=== PATIENT | male | born 1960 | race Caucasian/White ===

== ENCOUNTER 2016-08-19 09:22 | Emergency (ER) | payer OTHER ==
[2016-08-19] MEDS ORDERED: HYDROmorphONE/DILAUDID 1 MG/ML SYR IVP ONE (09:28)
[2016-08-19] MEDS ORDERED: IBUPROFEN 200 MG TAB PO ONE (09:28)
--- NOTE | 2016-08-19 09:31 | EDPHY ---
H & P Time Seen by Provider: 08/19/16 09:23 HPI/ROS: CHIEF COMPLAINT: Head injury HISTORY OF PRESENT ILLNESS: Patient is a 56-year-old man who is brought in by EMS after slip and fall. He slipped on ice and hit the back of his head on the ground. He has a 3 cm laceration to his occiput. He did lose consciousness. Witnesses state that he was perseverating initially but no longer was by the time paramedics arrived. His vital signs for them were stable and his glucose is 135. He has mild C1 -C2 area pain as well as a mild headache. He does not take blood thinners or any other medications. He has a history of asthma but nothing else. Denies any recent drug or alcohol ingestion. REVIEW OF SYSTEMS: Constitutional: denies: chills, fever, recent illness, recent injury EENTM: denies: blurred vision, double vision, nose congestion Respiratory: denies: cough, shortness of breath Cardiac: denies: chest pain, irregular heart rate, lightheadedness, palpitations Gastrointestinal/Abdominal: denies: abdominal pain, diarrhea, nausea, vomiting, blood streaked stools Genitourinary: denies: dysuria, frequency, hematuria, pain Musculoskeletal: See HPI denies: joint pain, muscle pain Skin: denies: lesions, rash, jaundice, bruising Neurological: See HPI denies:numbness, paresthesia, tingling, dizziness, weakness Hematologic/Lymphatic: denies: blood clots, easy bleeding, easy bruising Immunologic/allergic: denies: HIV/AIDS, transplant EXAM: GENERAL: Well-appearing, well-nourished and in no acute distress. answers questions appropriately. Not perseverating HEAD: 3 cm laceration to occiput, no visible galea involvement. Not gaping. No crepitus or deformity. EYES: Pupils equal round and reactive to light, extraocular movements intact, sclera anicteric, conjunctiva are normal. ENT: No hemotympanum,TMs normal, nares patent, oropharynx clear without exudates. Moist mucous membranes. NECK: Mild pain at C1-C2 area. No tenderness. No pain with slight range of motion. supple without lymphadenopathy or JVD. LUNGS: Breath sounds clear to auscultation bilaterally and equal. No wheezes rales or rhonchi. HEART: Regular rate and rhythm without murmurs, rubs or gallops. ABDOMEN: Soft, nontender, normoactive bowel sounds. No guarding, no rebound. No masses appreciated. BACK: No CVA tenderness, no spinal tenderness, step-offs or deformities EXTREMITIES: Normal range of motion, no pitting or edema. No clubbing or cyanosis. NEUROLOGICAL: Cranial nerves II through XII grossly intact. Normal speech, normal gait. 5/5 strength, normal movement in all extremities, normal sensation PSYCH: Normal mood, normal affect. SKIN: Warm, dry, normal turgor, no visible rashes or lesions. Source: Patient, EMS Exam Limitations: No limitations - Medical/Surgical History Hx Asthma: No Hx Chronic Respiratory Disease: No Hx Diabetes: No Hx Cardiac Disease: No Hx Renal Disease: No Hx Cirrhosis: No Hx Alcoholism: No - Family History Significant Family History: No pertinent family hx - Social History Smoking Status: Never smoked Alcohol Use: Sober Drug Use: None Constitutional: Initial Vital Signs Temperature (C) 36.8 C 08/19/16 09:31 Heart Rate 97 08/19/16 09:31 Respiratory Rate 18 08/19/16 09:31 Blood Pressure 156/106 H 08/19/16 09:31 O2 Sat (%) 92 08/19/16 09:31 O2 Delivery Mode Room Air Allergies/Adverse Reactions: No Known Allergies Allergy (Unverified 08/19/16 09:30) Home Medications: Medication Instructions Recorded NK [No Known Home Meds] 08/19/16 Medical Decision Making - Diagnostics Imaging: Results: CT scan of the head and cervical spine was obtained. The results of the study are negative for fractures or intracranial injuries. The study was read by Dr. Henson. I viewed the images myself on the PACS system. Procedures: Procedure: Laceration repair. Verbal consent was obtained from the patient. The 3 cm scalp laceration was anesthetized with 1% lidocaine with epi and bicarbonate locally infiltrated. The wound was irrigated copiously according to protocol, draped and explored to its base. It was approximately 1/2 cm deep. There were no deep structures involved. No tendon, nerve, or vascular injury was identified when explored. No foreign body was identified. The wound was repaired with 5 stef. The wound repair was simple. The procedure was performed by myself. A dressing was then placed with sterile gauze and bacitracin. ED Course/Re-evaluation: Cervical collar poorly fitting and cleared by me on arrival. The patient does have very slight neck pain and we discussed benefits of self splinting which has been shown more effective than poorly fitting cervical collars. We will obtain CT scan head and neck treat for pain. We discussed CT results. The patient is relieved. He is not currently in any pain and has no complaints. 12:10 p.m. patient tolerated laceration repair. He declines further workup or testing is eager to go home. Differential Diagnosis: Partial list of the Differential diagnosis considered include but were not limited to; laceration, concussion and although unlikely based on the history and physical exam, I also considered intracranial injury, neck injury. I discussed these differential diagnoses and the plan with the patient as well as the usual and expected course. The patient understands that the diagnosis is provisional and that in medicine we are not always correct and that further workup is often warranted. Usual and customary warnings were given. All of the patient's questions were answered. The patient was instructed to return to the emergency department should the symptoms at all worsen or return, otherwise to followup with the physician as we discussed. - Data Points Medications Given: Discontinued Medications Diphtheria/Tetanus/Acell Pertussis (Boostrix) 0.5 ml IM .ONCE ONE Stop: 08/19/16 09:34 Last Admin: 08/19/16 09:41 Dose: 0.5 ml Hydromorphone HCl (Dilaudid) 0.5 mg IVP EDNOW ONE Stop: 08/19/16 09:29 Last Admin: 08/19/16 10:27 Dose: Not Given Ibuprofen (Motrin) 800 mg PO EDNOW ONE Stop: 08/19/16 09:29 Last Admin: 08/19/16 09:42 Dose: 800 mg Ondansetron HCl (Zofran) 4 mg IVP EDNOW ONE Stop: 08/19/16 10:24 Last Admin: 08/19/16 10:27 Dose: 4 mg Departure - Departure Disposition: Home, Routine, Self-Care Clinical Impression: Laceration Concussion Qualifiers: Encounter type: initial encounter Loss of consciousness presence/duration: without LOC Qualifier Code: (S06.0X0A) Concussion without loss of consciousness , initial encounter Condition: Fair Instructions: Staple Care (ED), Concussion (ED) Additional Instructions: Have your stef removed in 10 days. Referrals: Patient,NotPresent [Unknown] - As per Instructions Gabriel Heller MD [Medical Doctor] - As per Instructions
[2016-08-19 09:33] VITALS: RESP 18; TEMP 98.2
[2016-08-19] MEDS ORDERED: TDAP ADULT 0.5 ML VIAL (BOOSTRIX) IM ONE (09:33)
[2016-08-19] MEDS ORDERED: ONDANSETRON 4 MG/2 ML VIAL IVP ONE (10:23)
--- NOTE | 2016-08-19 11:27 | CT ---
CT Cervical Spine Without Contrast History: Fall, striking head on ground, loss of consciousness, laceration. Comparison: CT head same day. Technique: Multislice helical CT through the cervical spine without contrast from the skull base to T 1. Soft tissue and bone evaluation is performed. Sagittal and coronal reconstructions are obtained an d reviewed. Dose reduction techniques were utilized. Findings: Cervical alignment is anatomic. No fracture is identified. The relationship between the sku ll base and C1 is normal. The C1-C2 articulation is normal. Moderate vertebral and uncovertebral spon dylosis is present at C3-4 and C5-6 with mild degenerative change throughout the remainder of the cer vical spine. There is mild spinal narrowing at C3-4 and mild to moderate spinal canal narrowing at C5 -6, with moderate right neural foraminal stenosis at C4-5 and C5-6 and mild left neural foraminal bita nosis at C3-4. The cervicothoracic junction is normal. There is no visible epidural or prevertebral h ematoma. Impression: 1. No acute posttraumatic abnormality identified. 2. Multilevel degenerative change, with moderate spinal narrowing at C5-6. Findings discussed with Dr. Andrez Ross on 08/19/2016 at 1115 hours.
--- NOTE | 2016-08-19 11:33 | CT ---
CT Head Without Contrast History: Trauma, fell, striking head on ground, loss of consciousness with scalp laceration. Comparison: None available. Technique: Axial unenhanced images were obtained from the vertex through the skull base. Dose reducti on techniques were utilized. Findings: A small occipital scalp hematoma/laceration is present. Ames-white differentiation is prese rved. The ventricles and sulci are normal. No intracranial hemorrhage is identified. No extraaxial fluid collections are identified. There is no mass effect or evidence of infarct. The skull and sku ll base are unremarkable. Mild mucous membrane thickening is present in the paranasal sinuses. The mastoid air cells are clear. Impression: No acute intracranial findings. Findings discussed with Dr. Andrez Ross on 08/19/2016 at 1115 hours.
[2016-08-19 12:37] VITALS: BP 136/88; PULSE 82; O2SAT 95
== END 2016-08-19 12:36 | disposition home or self-care (01) ==
LOC: EDUNIT#
DX: S06.0X0A Concussion without loss of consciousness, initial encounter (principal); S01.01XA Laceration without foreign body of scalp, initial encounter; Z23 Encounter for immunization; W01.198A Fall on same level from slipping, tripping and stumbling with subsequent striking against other object, initial encounter
CPT/HCPCS: 96374; J2405